=== PATIENT | female | born 1985 | race Caucasian/White ===

== ENCOUNTER 2016-07-07 11:27 | Inpatient (IN) | payer BC ==
[2016-07-17] MEDS ORDERED: METHYLERGONOVINE 0.2 MG/ML 1 ML AMP IM PRN (06:07)
[2016-07-17] MEDS ORDERED: TERBUTALINE 1 MG/ML VIAL SQ PRN (06:07)
[2016-07-17] MEDS ORDERED: CARBOPROST TROMETHAMINE 250 MCG/ML 1 ML AMP IM PRN (06:07)
[2016-07-17] MEDS ORDERED: OXYTOCIN 10 UNIT/ML 1 ML VIAL IM PRN (06:07)
[2016-07-17] MEDS ORDERED: LIDOCAINE 1% (PF) 10 MG/ML (30 ML SDV) SQ PRN (06:07)
[2016-07-17] MEDS ORDERED: OXYTOCIN 30 UNITS/500 ML NS 30 UNIT in SALINE 1 500ML.BAG IV SCH (06:15)
[2016-07-17] MEDS ORDERED: LACTATED RINGERS 1,000 ML IV SCH (06:15)
[2016-07-17 06:20] VITALS: BMI 36.5
[2016-07-17 06:22] LABS: Basophils # (A) 0.1 k/uL (0-0.2); Basophils % (A) 1 %; CH 31.1; CHCM 33.9; Eosinophils # (A) 0.1 k/uL (0-0.7); Eosinophils % (A) 1 %; HCT 42.5 % (34.0-46.0); HDW 2.45; Luc # (Auto) 0.17; Luc % (Auto) 2; Lymphocytes # (A) 1.9 k/uL (1.0-4.8); Lymphocytes % (A) 18 %; MCH 30.3 pg (25.0-35.0); MCHC 32.9 g/dL (31.0-37.0); MCV 92.1 fL (80.0-100.0); Monocytes # (A) 0.6 k/uL (0-1.0); Monocytes % (A) 6 %; Neutrophils # (A) 7.5 k/uL (1.3-7.7); Neutrophils % (A) 73 %; RBC 4.61 m/uL (3.80-5.40); RDW 13.8 % (11.5-15.5); WBC 10.3 k/uL (3.8-10.6); WBC (Perox) 10.39
[2016-07-17] MEDS: LACTATED RINGERS 1,000 ML IV SCH ×3 (06:35→08:15)
[2016-07-17] MEDS ORDERED: fentaNYL (PF) 50 MCG/ML 5 ML AMP ONE (06:57)
[2016-07-17] MEDS ORDERED: BUPIVACAINE (PF) 0.25% 30 ML VIAL ONE (06:57)
[2016-07-17] MEDS ORDERED: SODIUM CHLORIDE 0.9% 100 ML BAG ONE (06:57)
--- NOTE | 2016-07-17 07:07 | P.HPOB ---
History of Present Illness H&P Date: 07/17/16 Chief Complaint: Strong regular uterine contractions This is a 31-year-old white female 3 para 1011 EDC 07/07/2016 41-4/7 weeks' gestation. Patient was initially scheduled for induction this morning with favorable multiparous cervix, but presented in active spontaneous labor. She denied fluid leakage or vaginal bleeding. Fetus is been active throughout the . Obstetric history: Blood type is O+, rubella status immune. VDRL negative, urine culture, hepatitis B surface antigen, HIV testing, group B strep cultures , gonorrhea and chlamydia cultures all negative. Rubella status immune. One- hour Glucola 72. Past medical history is significant for benign breast neoplasm. Past surgical history breast biopsy, cholecystectomy, colonoscopy, jaw surgery, sinus surgery for deviated septum. Current medications vitamins daily. Medical ALLERGIES none known. Family history is significant for atrial fibrillation, hypertension, thyroid disease, insulin-dependent diabetes, and diverticulosis. Social history patient is , she is never been a smoker, she denies alcohol or drug use. On exam this is a pleasant white female, 5 foot 8 inches, 240 pounds, blood pressure 138/75 on admission, patient is afebrile. The general physical exam is within normal limits. The chest is clear in all grossman. The cervix is 5-6 cm dilated, 90% effaced, -2 station, vertex presentation. Artificial amniorrhexis reveals clear fluid. heart tones are consistent with reactive NST. Uterine contractions are occurring regularly, approximately every 4 minutes apart, moderate to severe intensity. Impression: 41-4/7 weeks intrauterine , active spontaneous labor. : Anesthesia is here for epidural placement per patient request. Close maternal and surveillance. Anticipate normal spontaneous vaginal delivery. Review of Systems Negative except as in HPI. Past Medical History Past Medical History: No Reported History History of Any Multi-Drug Resistant Organisms: None Reported Past Surgical History: Cholecystectomy Additional Past Surgical History / Comment(s): jaw surgery 2003, lumpectomy of left breast 2009, nose surgery for deviated septum 2003 Past Anesthesia/Blood Transfusion Reactions: No Reported Reaction Past Psychological History: No Psychological Hx Reported Smoking Status: Never smoker Past Alcohol Use History: None Reported Past Drug Use History: None Reported - Past Family History Father Family Medical History: No Reported History Medications and Allergies Home Medications Medication Instructions Recorded Confirmed Type Pnv with Ca,No.72/Iron/FA 1 tab PO DAILY 07/17/16 07/17/16 History [ Plus Tablet] Allergies Allergy/AdvReac Type Severity Reaction Status Date / Time No Known Allergies Allergy Verified 07/17/16 06:05 Exam - Vital Signs Vital signs: Vital Signs Temp Pulse Resp BP Pulse Ox 07/17/16 05:57 96.7 F L 89 18 138/75 98 Intake and Output 07/16/16 07/17/16 07/17/16 22:59 06:59 14:59 Other: # Voids 1 Weight 108.862 kg See dictation, please Results Result Diagrams: 07/17/16 06:10 Assessment and Plan Plan: Close maternal and surveillance. Epidural being placed at this time. Anticipate normal spontaneous vaginal delivery. Time with Patient: Less than 30
[2016-07-17] MEDS ORDERED: ACETAMINOPHEN TAB 325 MG TAB PO PRN (10:33)
[2016-07-17] MEDS ORDERED: IBUPROFEN 600 MG TAB PO PRN (10:33)
[2016-07-17] MEDS ORDERED: LANOLIN CREAM 5 GM TUBE TOPICAL PRN (10:33)
[2016-07-17] MEDS ORDERED: SIMETHICONE 80 MG CHEWABLE PO PRN (10:33)
[2016-07-17] MEDS ORDERED: Acetaminophen-Codeine 300-30mg TAB PO PRN (10:33)
[2016-07-17] MEDS ORDERED: BENZOCAINE/MENTHOL SPRAY 1 GM/SPRAY AEROSOL TOPICAL PRN (10:33)
[2016-07-17] MEDS ORDERED: diphenhydrAMINE 25 MG CAP PO PRN (10:33)
[2016-07-17] MEDS ORDERED: ZOLPIDEM 5 MG TAB PO PRN (10:33)
[2016-07-17] MEDS ORDERED: diphenhydrAMINE 50 MG/ML 1 ML VIAL IVP PRN ×2 (10:33)
[2016-07-17] MEDS ORDERED: HYDROCORTISONE 2.5% RECTAL CREAM 30 GM TUBE RECTAL PRN (10:33)
[2016-07-17] MEDS ORDERED: diphenhydrAMINE 50 MG CAP PO PRN (10:33)
[2016-07-17] MEDS ORDERED: WITCH HAZEL 1 EACH MED..PAD TOPICAL PRN (10:33)
--- NOTE | 2016-07-17 10:33 | P.PROBDLV ---
Vaginal Delivery Note - . Vaginal Delivery Note: This is a 31-year-old white female 3 para 1011 EDC 07/07/2016 at 41-4/7 weeks' gestation. Patient was initially scheduled for induction for postdates, but presented in active spontaneous labor. Group B strep cultures negative. Blood type O+. Rubella status immune. Please see my dictated history and physical for details. Epidural was placed per her request. Artificial amniorrhexis revealed clear fluid. She progressed well through the first stage of labor and was judged to be completely dilated at 0958 hours. She began the second stage of labor at that time. heart tones were reassuring throughout the first and second courses of labor. Perineal body was quickly prepped and draped. Infant's head delivered occiput anterior and he restituted accordingly. There was no nuchal cord noted. The left or anterior shoulder was delivered from underneath the pubic symphysis at which time the oropharynx, nasopharynx, and external nares were bulb suctioned on the perineal body. Patient was officially delivered of a liveborn male infant at 1015 hrs. 1 minute was given for delayed cord clamping. The umbilical cord was doubly clamped and cut at that time. Infant was handed to waiting nurses for evaluation where scores of 9 and 10 at one and 5 minutes respectively were given. Infant weighed 8 lbs. 4 oz. or 3750 g. Placenta was then delivered spontaneously, it was inspected and noted to be intact with trivascular cord at 1017 hrs. Inspection now of the cervix, vagina, perineum and periurethral areas revealed a small first-degree perineal laceration easily repaired. The fundus is firm and in the midline, symmetric and 18 week size upon completion of delivery. All sponge needle and enhancement counts are correct. Patient and her are requesting circumcision further son. Estimated blood loss 300 mL's. The patient and her and her baby are allowed to begin the bonding experience in the LDR. Complications: None
[2016-07-17] MEDS: OXYTOCIN 30 UNITS/500 ML NS 30 UNIT in SALINE 1 500ML.BAG IV SCH ×2 (22:08→22:09)
[2016-07-17] MEDS: SENNOSIDES-DOCUSATE SODIUM 1 EACH TAB PO SCH (22:09)
[2016-07-18] MEDS: OXYTOCIN 30 UNITS/500 ML NS 30 UNIT in SALINE 1 500ML.BAG IV SCH ×2 (02:41→05:50)
--- NOTE | 2016-07-18 07:51 | P.DS ---
Providers Date of admission: 07/17/16 05:53 Expected date of discharge: 07/18/16 Attending physician: Monalisa Hook Primary care physician: Stated None Hospital Course: This is a 31-year-old white female 3 para 1011 EDC 07/07/2016 at 41-4/7 weeks' gestation. Patient presented in active spontaneous labor. Her was unremarkable, group B strep cultures negative, blood type O positive, rubella status immune. Please see my dictated history and physical for details. Patient was admitted, epidural was placed per her request. Oxytocin augmentation was given. She went on to swiftly deliver a liveborn male with scores of 9 and 10 at one and 5 minutes respectively. weight 8 lbs. 4 oz. or 30 750 g. There was an estimated blood loss of 300 mL at the time of delivery. There was a small first-degree perineal laceration easily repaired. Please see my dictated delivery note for details. This morning the patient is doing well. She is voiding, ambulating and passing flatus without difficulty. Vital signs are stable and she is afebrile. Fundus is firm and in the midline, symmetric and 18 week size. Extremities are negative. Perineal body is clean and dry. There is moderate lochia rubra with no large blood clots. Breasts are not engorged. Circumcision has been performed and was unremarkable. Patient is being discharged home this morning in very good condition. She will follow-up with me in the office in 6 weeks. I have reminded her no intercourse , tampons or douching. She will use [id number] ibuprofen products, 200 mg pills, 3 every 6 hours as needed. She will continue taking her vitamin daily. I have reminded her to call me with any fevers shakes or chills , foul smelling or copious lochia, with the passage of large blood clots, with any pain not alleviated by ibuprofen, with any breast issues, extremity edema, or indeed with any concerns. Contemplating her options for contraception and we will discuss this further in the office. Plan - Discharge Summary Discharge Medication List Pnv with Ca,No.72/Iron/FA [ Plus Tablet] 1 tab PO DAILY 07/17/16 [ History] Follow up Appointment(s)/Referral(s): Monalisa Hook MD [STAFF PHYSICIAN] - 6 Weeks Discharge Disposition: HOME SELF-CARE
[2016-07-18] MEDS: SENNOSIDES-DOCUSATE SODIUM 1 EACH TAB PO SCH (09:22)
[2016-07-18 09:28] VITALS: RESP 17; TEMP 98.1
[2016-07-18 09:41] VITALS: BP 122/69; PULSE 76
== END 2016-07-18 13:30 | disposition home or self-care (01) | DRG 775 ==
LOC: 4FBP 07-17 05:53
PROVIDERS: ADMIT Obstetrics & Gynecology; ATTEND Obstetrics & Gynecology
PROC: 0HQ9XZZ Repair Perineum Skin, External Approach (ICD-10-PCS; principal; 2016-07-17)
PROC: 10E0XZZ Delivery of Products of Conception, External Approach (ICD-10-PCS; principal; 2016-07-17)
PROC: 00HU33Z Insertion of Infusion Device into Spinal Canal, Percutaneous Approach (ICD-10-PCS; principal; 2016-07-17)
PROC: 10907ZC Drainage of Amniotic Fluid, Therapeutic from Products of Conception, Via Natural or Artificial Opening (ICD-10-PCS; principal; 2016-07-17)
PROC: 3E0R3CZ (ICD-10-PCS; principal; 2016-07-17)
DX: O70.0 First degree perineal laceration during delivery (principal); Z37.0 Single live birth; Z3A.41 41 weeks gestation of pregnancy
CPT/HCPCS: 85025; 88307